=== PATIENT | female | born 1995 | race Caucasian/White ===

== ENCOUNTER 2023-07-21 04:42 | Emergency (ER) | payer BC ==
--- OUTSIDE RECORDS SUMMARY | 2023-07-21 04:45 | XMS REPORT | Continuity of Care Document ---
Author Name Unknown Address [address] [facility] [address] [place] [address] [facility] thconnect Address [address] [facility] [address] [place] [address] Care Team Providers Care Exercise Manager Name Role Phone Rajinder MALONEY Primary Care Physician JEN Castaneda APN Attending Clinician Unavail able SALBADOR CUELLO Attending Clinician UnavailMAI Hairston APN Attending Clinician UnavailANGEL Sims Attending Clinician Unavailpineda e SALBADOR CUELLO Admitting Clinician ANGEL Mast Admitting Clinician Evelio mendoza Payers Payer Name Policy Type Policy Number Effective Date Expirati on Date Source 7 B [id number] Problems Condition Name Condition Details Condition Category Status Onset Date Resolution Date Last Treatment Date Treating Clinician Comments Source Labor finding Problem [facility] Allergies, Adverse Reactions, Alerts Allergy Name Allergy Type Status Severity Reaction(s) Onset Date Inactive Date Treating Clinician Comments Source No Known Allergie s NA Active 06-17 16:50: 03 [facility] ([facility]) No Known Allergie s NA Active 06-17 15:45: 08 [facility] No Known Allergie s NA Active 06-17 00:26: 30 [facility] No Known Allergie s NA Active 06-03 11:11: 32 [facility] ([facility]) No Known Allergie s NA Active 06-03 11:11: 23 [facility] ([facility]) No Known Allergie s NA Active 06-03 11:02: 58 [facility] ([facility]) No Known Allergie s NA Active 06-03 11:02: 56 [facility] ([facility]) Social History Social Habit Start Date Stop Date Quantity Comments Source ASSERTION Nils kowalski ([place]) Future intention Reported Nils kearney ([place]) Sex Assigned At 1995 00:00:00 1995 00:00:00 Female [employer] Smoking Status Start Date Stop Date Source Unknown if ever smoked [employer] Never Smoked [facility] ([place]) Medications Ordered Medication Name Filled Medication Name Start Date Stop Date Current Medication? Ordering Clinician Indication Dosage Frequency Signature (SIG) Comments Components Source vitamin 27-0.8 MG TABS vitamin 27-0.8 MG TABS 06-19 09:00: 00 06-20 12:40 :00 No 1TAB medication : vitamin 27-0.8 MG TABS|dose: 1.0 TAB|route: BY MOUTH|freq uency:NIKKY Y [facility] ([facility]) famotidine famotidine 06-19 06:09: 08 Yes 0mg medication :famotidin e|dose:0.0 mg|route:| frequency: [facility] ([facility]) vitamin 27-0.8 MG vitamin 27-0.8 MG 06-19 06:09: 08 Yes 1TAB medication : vitamin 27-0.8 MG|dose:1. 0 TAB|route: BY MOUTH|freq uency:NIKKY Y [facility] ([facility]) acetaminoph en acetaminoph en 06-19 06:09: 08 Yes 650mg medication :acetamino phen|dose: 650.0 mg|route:B Y MOUTH|freq uency:EVER Y 4 HOURS NEEDED [facility] ([facility]) ibuprofen ibuprofen 06-19 06:09: 08 Yes 800mg medication :ibuprofen |dose:800. 0 mg|route:B Y MOUTH|freq uency:EVER Y 8 HOURS NEEDED [facility] ([facility]) vitamin C 500 MG TABS vitamin C 500 MG TABS 06-18 21:00: 00 06-19 06:09 :08 No 500mg medication :vitamin C 500 MG TABS|dose: 500.0 mg|route:B Y MOUTH|freq uency:TWIC E DAILY [facility] ([facility]) docusate sodium 100 MG CAPS docusate sodium 100 MG CAPS 06-18 21:00: 00 06-19 06:09 :08 No 100mg medication :docusate sodium 100 MG CAPS|dose: 100.0 mg|route:B Y MOUTH|freq uency:EVER Y 12 HOURS [facility] ([facility]) LR + oxytocin 20 units 1000 ML SOLN LR + oxytocin 20 units 1000 ML SOLN 06-18 18:14: 00 06-18 18:14 :00 No 1000mL medication :LR + oxytocin 20 units 1000 ML SOLN|dose: 1000.0 mL|route:I NTRAVENOUS |frequency :ONE TIME [facility] ([facility]) ibuprofen 800 MG TABS ibuprofen 800 MG TABS 06-18 13:19: 06-20 12:40 :00 No 800mg medication :ibuprofen 800 MG TABS|dose: 800.0 mg|route:B Y MOUTH|freq uency:EVER Y 8 HOURS NEEDED [facility] ([facility]) acetaminoph en 325 MG TABS acetaminoph en 325 MG TABS 06-18 13:19: 00 06-20 12:40 :00 No 650mg medication :acetamino phen 325 MG TABS|dose: 650.0 mg|route:B Y MOUTH|freq uency:EVER Y 4 HOURS NEEDED [facility] ([facility]) NS + oxytocin 20 units 1000 ML SOLN NS + oxytocin 20 units 1000 ML SOLN 06-18 13:19: 06-19 22:00 :26 No 1000mL medication :NS + oxytocin 20 units 1000 ML SOLN|dose: 1000.0 mL|route:I NTRAVENOUS |frequency :CONT [facility] ([facility]) ondansetron INJ 4 MG/2 ML SOLN ondansetron INJ 4 MG/2 ML SOLN 06-18 13:19: 00 06-19 06:09 :08 No 4mg medication :ondansetr on INJ 4 MG/2 ML SOLN|dose: 4.0 mg|route:I NTRAVENOUS |frequency :EVERY 6 HOURS NEEDED [facility] ([facility]) diphenhydrA MINE (Benadryl) 25 MG CAPS diphenhydrA MINE (Benadryl) 25 MG CAPS 06-18 13:19: 06-19 06:09 :08 No 25mg medication :diphenhyd rAMINE (Benadryl) 25 MG CAPS|dose: 25.0 mg|route:B Y MOUTH|freq uency:EVER Y 6 HOURS NEEDED [facility] ([facility]) lanolin CREA lanolin CREA 06-18 13:19: 06-19 06:09 :08 No 1APP medication :lanolin CREA|dose: 1.0 ROWDY|route: TOPICAL|fr equency: NEEDED [facility] ([facility]) bisacodyl ORAL TAB 5 MG TBEC bisacodyl ORAL TAB 5 MG TBEC 06-18 13:19: 06-19 06:09 :08 No 10mg medication :bisacodyl ORAL TAB 5 MG TBEC|dose: 10.0 mg|route:B Y MOUTH|freq uency:EVER Y 12 HOURS NEEDED [facility] ([facility]) magnesium hydroxide (MOM) 400 MG/5 ML SUSP magnesium hydroxide (MOM) 400 MG/5 ML SUSP 06-18 13:19: 06-19 06:09 :08 No 30mL medication :magnesium hydroxide (MOM) 400 MG/5 ML SUSP|dose: 30.0 mL|route:B Y MOUTH|freq uency:EVER Y 12 HOURS [facility]ED [facility] sennosides 8.6 MG TABS sennosides 8.6 MG TABS 06-18 13:19: 06-19 06:09 :08 No 2TAB medication :sennoside s 8.6 MG TABS|dose: 2.0 TAB|route: BY MOUTH|freq uency:EVER Y 12 HOURS [facility]ED [facility] hydrocortis one RECTAL 25 MG SUPP hydrocortis one RECTAL 25 MG SUPP 06-18 13:19: 06-19 06:09 :08 No 25mg medication :hydrocort isone RECTAL 25 MG SUPP|dose: 25.0 mg|route:R ECTAL|freq uency:TWIC E DAILY NEEDED [facility] ([facility]) witch toñito (tucks) PADS witch toñito (tucks) PADS 06-18 13:19: 06-19 06:09 :08 No 1EA medication :witch toñito (tucks) PADS|dose: 1.0 EA|route:R ECTAL|freq uency:FOUR TIMES DAILY NEEDED [facility] ([facility]) benzocaine RECTAL 20 % OINT benzocaine RECTAL 20 % OINT 06-18 13:19: 06-19 06:09 :08 No 1APP medication :benzocain e RECTAL 20 % OINT|dose: 1.0 ROWDY|route: RECTAL|suzette quency:TWI CE DAILY NEEDED [facility] ([facility]) benzocaine- methanol spray 20-0.5 % AERO benzocaine- methanol spray 20-0.5 % AERO 06-18 13:19: 06-19 06:09 :08 No 1APP medication :benzocain e-methanol spray 20-0.5 % AERO|dose: 1.0 ROWDY|route: TOPICAL|fr equency:FO UR TIMES DAILY [facility]ED [facility] ondansetron ODT 4 MG TBDP ondansetron ODT 4 MG TBDP 06-18 13:19: 00 06-19 06:09 :08 No 4mg medication :ondansetr on ODT 4 MG TBDP|dose: 4.0 mg|route:B Y MOUTH|freq uency:EVER Y 6 HOURS NEEDED [facility] ([facility] mineral oil OIL mineral oil OIL 06-18 11:11: 00 06-18 11:11 :00 No 30mL medication :mineral oil OIL|dose:3 0.0 mL|route:B Y MOUTH|freq uency:ONE TIME [facility] ([facility]) LR + oxytocin 20 units 1000 ML SOLN LR + oxytocin 20 units 1000 ML SOLN 06-18 05:44: 00 06-18 05:44 :00 No 1000mL medication :LR + oxytocin 20 units 1000 ML SOLN|dose: 1000.0 mL|route:I NTRAVENOUS |frequency :ONE TIME [facility] ([facility]) NS + oxytocin 20 units 1000 ML SOLN NS + oxytocin 20 units 1000 ML SOLN 06-18 05:00: 00 06-18 05:00 :00 No 1000mL medication :NS + oxytocin 20 units 1000 ML SOLN|dose: 1000.0 mL|route:I NTRAVENOUS |frequency :TITRATE PRN [facility] ([facility]) NS + oxytocin 20 units 1000 ML SOLN NS + oxytocin 20 units 1000 ML SOLN 06-18 04:00: 00 06-19 22:00 :26 No 1000mL medication :NS + oxytocin 20 units 1000 ML SOLN|dose: 1000.0 mL|route:I NTRAVENOUS |frequency :TITRATE PRN [facility] ([facility]) fentaNYL INJ 100 MCG/2 ML SOLN fentaNYL INJ 100 MCG/2 ML SOLN 06-17 15:56: 00 06-19 06:09 :08 No 100ug medication :fentaNYL INJ 100 MCG/2 ML SOLN|dose: 100.0 ug|route:I NTRAVENOUS |frequency :EVERY HOUR NEEDED [facility] ([facility]) mineral oil (sterile) 10 ML OIL mineral oil (sterile) 10 ML OIL 06-17 15:32: 00 06-18 22:00 :24 No 10mL medication :mineral oil (sterile) 10 ML OIL|dose:1 0.0 mL|route:N OT APPLICABLE |frequency :ONE TIME [facility] ([facility]) NS SOLN NS SOLN 06-17 15:30: 00 06-20 12:40 :00 No 50mL medication :NS SOLN|dose: 50.0 mL|route:P ERCUTANEOU S|frequenc y:ONE-TIME UNSCHEDULE D ORDER [facility] ([facility]) fentanyl/bu pivacaine-N S 200MCG-0.12 5% 100 ML SOLN fentanyl/bu pivacaine-N S 200MCG-0.12 5% 100 ML SOLN 06-17 15:30: 00 06-19 06:09 :08 No 100mL medication :fentanyl/ bupivacain e-NS 200MCG-0.1 25% 100 ML SOLN|dose: 100.0 mL|route:E PIDURAL|fr equency:ON E-TIME UNSCHEDULE D ORDER [facility] ([facility]) fentaNYL INJ 100 MCG/2 ML SOLN fentaNYL INJ 100 MCG/2 ML SOLN 06-17 15:30: 00 06-19 06:09 :08 No 100ug medication :fentaNYL INJ 100 MCG/2 ML SOLN|dose: 100.0 ug|route:E PIDURAL|fr equency:ON E-TIME UNSCHEDULE D ORDER [facility] ([facility]) ondansetron INJ 4 MG/2 ML SOLN ondansetron INJ 4 MG/2 ML SOLN 06-17 15:30: 00 06-19 06:09 :08 No 4mg medication :ondansetr on INJ 4 MG/2 ML SOLN|dose: 4.0 mg|route:I NTRAVENOUS |frequency :EVERY 8 HOURS NEEDED [facility] ([facility]) promethazin e INJ 25 MG/ML SOLN promethazin e INJ 25 MG/ML SOLN 06-17 15:30: 00 06-19 06:09 :08 No 12.5mg medication :promethaz ine INJ 25 MG/ML SOLN|dose: 12.5 mg|route:I NTRAMUSCUL AR|frequen cy:EVERY 4 HOURS NEEDED [facility] ([facility]) citric acid-sod citrate ORAL 334-500 MG/5ML SOLN citric acid-sod citrate ORAL 334-500 MG/5ML SOLN 06-17 15:30: 00 06-19 06:09 :08 No 30mL medication :citric acid-sod citrate ORAL 334-500 MG/5ML SOLN|dose: 30.0 mL|route:B Y MOUTH|freq uency:FOUR TIMES DAILY NEEDED [facility] ([facility]) enema-sodiu m phosphate (fleet) ENEM enema-sodiu m phosphate (fleet) ENEM 06-17 15:30: 00 06-19 06:09 :08 No 1EA medication :enema-sod ium phosphate (fleet) ENEM|dose: 1.0 EA|route:R ECTAL|freq uency:ONE- TIME UNSCHEDULE D ORDER [facility] ([facility]) lidocaine INJ MULTI DOSE VIAL 2 % 20ML SOLN lidocaine INJ MULTI DOSE VIAL 2 % 20ML SOLN 06-17 15:30: 00 06-19 06:09 :08 No 20mL medication :lidocaine INJ MULTI DOSE VIAL 2 % 20ML SOLN|dose: 20.0 mL|route:P ERCUTANEOU S|frequenc y:ONE-TIME UNSCHEDULE D ORDER [facility] ([facility]) LR SOLN LR SOLN 06-17 15:30: 00 06-19 06:09 :08 No 1000mL medication :LR SOLN|dose: 1000.0 mL|route:I NTRAVENOUS |frequency :CONT [facility] LR SOLN LR SOLN 06-17 15:30: 00 06-19 06:09 :08 No 500mL medication :LR SOLN|dose: 500.0 mL|route:I NTRAVENOUS |frequency :ONE-TIME UNSCHEDULE D ORDER [facility] ([facility]) citric acid-sod citrate ORAL 334-500 MG/5ML SOLN citric acid-sod citrate ORAL 334-500 MG/5ML SOLN 06-17 15:30: 00 06-19 06:09 :08 No 15mL medication :citric acid-sod citrate ORAL 334-500 MG/5ML SOLN|dose: 15.0 mL|route:B Y MOUTH|freq uency:ONE- TIME UNSCHEDULE D ORDER [facility] ([facility]) famotidine INJ 20 MG/2 ML SOLN famotidine INJ 20 MG/2 ML SOLN 06-17 15:30: 00 06-19 06:09 :08 No 20mg medication :famotidin e INJ 20 MG/2 ML SOLN|dose: 20.0 mg|route:I NTRAVENOUS |frequency :ONE-TIME UNSCHEDULE D ORDER [facility] ([facility]) NS + oxytocin 20 units 1000 ML SOLN NS + oxytocin 20 units 1000 ML SOLN 06-17 15:30: 00 06-18 22:00 :24 No 1000mL medication :NS + oxytocin 20 units 1000 ML SOLN|dose: 1000.0 mL|route:I NTRAVENOUS |frequency :CONT [facility] ([facility]) Vital Signs Vital Name Observation Time Observation Value Comments S ource Body temperature 2023-06-21 07:53:00 97.9 [degF] [facility]) Diastolic blood pressure 2023-06-21 07:53:00 74 mm[Hg] [facility] [place]) Heart rate 2023-06-21 07:53:00 63 /min [facility]) Oxygen saturation in Arterial blood by Pulse oximetry 2023-06-21 07:53:00 98 /min [facility] [place]) Respiratory rate 2023-06-21 07:53:00 16 /min [facility]) Systolic blood pressure 2023-06-21 07:53:00 129 mm[Hg] [facility] ([place]) Body temperature 2023-06-21 07:30:00 97.9 [degF] [facility]) Diastolic blood pressure 2023-06-21 07:30:00 74 mm[Hg] [facility] ([place]) Heart rate 2023-06-21 07:30:00 63 /min [facility]) Oxygen saturation in Arterial blood by Pulse oximetry 2023-06-21 07:30:00 98 /min [facility] ([place]) Respiratory rate 2023-06-21 07:30:00 16 /min [facility]) Systolic blood pressure 2023-06-21 07:30:00 129 mm[Hg] [facility] ([place]) Body height 2023-06-18 15:25:41 157.48 cm [facility]) Body mass index (BMI) [Ratio] 2023-06-18 15:25:41 39.503 kg/m2 [facility] [place]) Body weight Measured 2023-06-18 15:25:41 97.976 kg [facility]) Body temperature 2023-06-18 00:23:00 98.1 [degF] [facility]) Heart rate 2023-06-18 00:23:00 89 /min [facility]) Oxygen saturation in Arterial blood by Pulse oximetry 2023-06-18 00:23:00 99 /min [facility] ([place]) Respiratory rate 2023-06-18 00:23:00 18 /min [facility]) Body height 2023-06-04 11:11:23 157.48 cm [facility]) Body mass index (BMI) [Ratio] 2023-06-04 11:11:23 38.954 kg/m2 [facility] [place]) Body weight Measured 2023-06-04 11:11:23 96.615 kg [facility] ([place]) Procedures Procedure Date / Time Performed Performing Clinicia n Source X-ray of ankle, three or more views 2019-01-02 00:00:00 [facility] Minor level new patient office visit 2019-01-02 00:00:00 [facility] X-ray of foot, three or more views 2019-01-02 00:00:00 [facility] Encounters Start Date/Time End Date/Time Encounter Type Admission Type Attending Clinicians Care Facility Care Department Encounter ID Source 2023-07-13 08:46:00 2023-07-13 08:46:00 Outpatient [facility] [id number] [facility] 2023-06-18 15:18:00 2023-06-21 12:40:00 Hospital Admission 3 [facility] OB [id number] [facility] 2023-06-18 00:23:00 2023-06-18 02:55:00 Outpatient Encounter 1 [facility] LDE [id number] [facility] 2023-06-15 10:02:00 2023-06-15 10:02:00 Outpatient Encounter 3 [facility] PAS [id number] [facility]) 2023-06-04 10:55:00 2023-06-04 13:33:00 Outpatient Encounter 3 [facility] [id number] [facility]) 2022-02-03 09:12:00 2022-02-03 09:12:00 Outpatient MAI DOYLE [id number] [facility] 2021-02-22 06:21:00 2021-02-25 14:07:00 Inpatient ANGEL ANDERSON OB [id number] [facility] 2021-01-25 18:59:00 2021-01-25 18:59:00 Outpatient ANGEL ANDERSON [id number] [facility] 2019-01-02 13:16:00 2019-01-16 23:59:00 Discharged Rubina Esteban [id number] [facility] Results Test Description Test Time Test Comments Results Result Co mments Source Hepatitis C virus Ab [Presence] in [id number] [facility][id number] 04:08:00* Test Item Value Reference Range Interpretation Comme nts WBC (test code = WBC) 12.1 K/UL 3.5-10.9 H RBC (test code = RBC) 3.67 M/UL 4.0-5.0 L HGB (test code = HGB) 10.6 G/DL 11.5-15.5 L HCT (test code = HCT) 32.1 % 34-46 L MCV (test code = MCV) 87.5 FL 80-98 MCH (test code = MCH) 28.9 PG 28-32 MCHC (test code = MCHC) 33.0 G/DL 32.5-36.5 RDW (test code = RDW) 13.1 % 11.5-14.5 PLT (test code = PLT) 230 K/UL 150-450 MPV (test code = MPV) 10.9 FL 7.4-10.4 H MANDIFF (test code = MANDIFF) NO SCAN (test code = SCAN) NO NEUT% (test code = NEUT%) 69.9 % 40-75 LYMPH% (test code = LYMPH%) 19.7 % 24-44 L MONO% (test code = MONO%) 7.0 % 0-13 EOS% (test code = EOS%) 1.1 % 0-4 BASO % (test code = BASO%) 0.5 % 0.0-2.0 IG (test code = IG) 0 % 0-1 IG% (test code = IG%) 1.8 % 0-1 H IG% = Metamyeloc ytes, Myelocytes, and Promyelocytes. (Immature neutrophils not including "bands".) > 3% IG indicates risk of sepsis NRBC% (test code = NRBC%) 0 /100 WBC ABS NEUT (test code = NEUT) 8.4 K/UL 1.2-7.2 H CBC W Auto Differential panel - [id number] 04:08:00* Test Item Value Reference Range Interpretation Comme nts Leukocytes other [Identifier ] in Blood by Automated count (test code = 29541-5) 12.1 K/UL 3.5-10.9 H Erythrocytes [#/volume] in B lood (test code = 90558-0) 3.67 M/UL 4.0-5.0 L Hemoglobin A/Hemoglobin.tota l in Blood (test code = 4546-8) 10.6 G/DL 11.5-15.5 L Hematocrit [Volume Fraction] of Blood (test code = 68701-5) 32.1 % 34.0-46.0 L Erythrocyte mean corpuscular volume [Entitic volume] (test code = 89716-1) 87.5 FL 80.0-98.0 N Erythrocyte mean corpuscular hemoglobin [Entitic mass] (test code = 51737-9) 28.9 PG 28.0-32.0 N Erythrocyte mean corpuscular hemoglobin concentration [Mass/volume] (test code = 75688-7) 33.0 G/DL 32.5-36.5 N Erythrocyte distribution wid th [Ratio] (test code = 69239-3) 13.1 % 11.5-14.5 N Platelets panel - Blood by Automated count (test code = 19845-0) 230 K/UL 150.0-450.0 N Platelet mean volume [Entiti c volume] in Blood by Automated count (test code = 81961-8) 10.9 FL 7.4-10.4 H Neutrophils.segmented/100 leukocytes in Blood (test code = 72518-6) 69.9 % 40.0-75.0 N Lymphocytes Variant/100 leuk ocytes in Blood (test code = 86061-8) 19.7 % 24.0-44.0 L Lymphocytes+Monocytes/100 leukocytes in Blood (test code = 4662-3) 7.0 % 0.0-13.0 N Eosinophils [#/volume] in Bl ood (test code = 87475-2) 1.1 % 0.0-4.0 N Basophils [#/volume] in Bloo d (test code = 74474-4) 0.5 % 0.0-2.0 N Immature granulocytes/100 leukocytes in Blood (test code = 25243-4) 1.8 % 0.0-1.0 H Nucleated erythrocytes [#/vo lume] in Blood (test code = 23985-2) 0 /100 WBC N Neutrophils [#/volume] in Bl ood (test code = 79887-1) 8.4 K/UL 1.2-7.2 H [facility] ([place])BLOOD GAS W/O [id number] 13:47:00* Test Item Value Reference Range Interpretation Comme [facility] SITE (test code = SITE) VENOUS See_Comment [Automated [employer]] The system which generated this result transmitted reference range: -SITE. The reference range was not used to interpret this result as normal/abnormal. ALLENS (test code = ALLENS) CORD O2 EQUIP (test code = O2 EQUIP) GAS O2-DEVICE PH (test code = BGPH) 7.39 7.35-7.45 PCO2 (test code = PCO2) 43 MMHG 34.0-45.0 PO2 (test code = PO2) 35 MMHG 96-104 LL HCO3 (test code = HCO3) 26.0 mmol/L 22.0-26.0 BE (test code = BE) 0.8 mmol/L -2.0-2.0 Gas and Carbon monoxide panel - [id number] 13:47:00* Test Item Value Reference Range Interpretation Comme [facility] SAMPLE SITE: (test code = SITE) VENOUS N ALLENS TEST: (test code = ALLENS) CORD N O2 EQUIPMENT: (test code = O2 EQUIP) GAS O2 N pH of Arterial blood (test code = 2744-1) 7.39 1 7.35-7.45 N PCO2 (test code = PCO2) 43 MMHG 34.0-45.0 N PO2 (test code = PO2) 35 MMHG 96.0-104.0 LL HCO3 (test code = HCO3) 26.0 mmol/L 22.0-26.0 N BE (test code = BE) 0.8 mmol/L See_Comment N [Aut omated message] The system which generated this result transmitted reference range: -2.0. The reference range was not used to interpret this result as normal/abnormal. [facility])BLOOD GAS W/O [id number] 13:46:00* Test Item Value Reference Range Interpretation Comme [facility] SITE (test code = SITE) ARTERIAL See_Comment [Automated messa ge] The system which generated this result transmitted reference range: -SITE. The reference range was not used to interpret this result as normal/abnormal. ALLENS (test code = ALLENS) CORD O2 EQUIP (test code = O2 EQUIP) GAS O2-DEVICE PH (test code = BGPH) 7.28 7.35-7.45 L PCO2 (test code = PCO2) 56 MMHG 34.0-45.0 H PO2 (test code = PO2) 31 MMHG 96-104 LL HCO3 (test code = HCO3) 26.3 mmol/L 22.0-26.0 H BE (test code = BE) -1.4 mmol/L -2.0-2.0 Gas and Carbon monoxide panel - [id number] 13:46:00* Test Item Value Reference Range Interpretation Comme [facility] SAMPLE SITE: (test code = SITE) ARTERIAL N ALLENS TEST: (test code = ALLENS) CORD N O2 EQUIPMENT: (test code = O2 EQUIP) GAS O2 N pH of Arterial blood (test code = 2744-1) 7.28 1 7.35-7.45 L PCO2 (test code = PCO2) 56 MMHG 34.0-45.0 H PO2 (test code = PO2) 31 MMHG 96.0-104.0 LL HCO3 (test code = HCO3) 26.3 mmol/L 22.0-26.0 H BE (test code = BE) -1.4 mmol/L See_Comment N [Au tomated message] The system which generated this result transmitted reference range: -2.0. The reference range was not used to interpret this result as normal/abnormal. [facility])[id number] 15:54:00* Test Item Value Reference Range Interpretation Comme [facility] BLOOD TYPE (test code = TYPE) O Rh Positive Comment for Females Rhogam may be indicated for patient depending baby's Rh status. ANTIBODY SCREEN (test code = SCREEN) NEGATIVE NEGATIVE Blood type and Indirect antibody screen panel -2023-06-18 15:54:00* Test Item Value Reference Range Interpretation Comme nts ABO + Rh group [Type] in Blo od (test code = 882-1) O Rh Positive N [facility] ([place])[id number] 02:10:00* Test Item Value Reference Range Interpretation Comme nts GLUCOSE (test code = URGLU) NEGATIVE MG/DL NEG-100 BILIRUBN (test code = URBILI) NEGATIVE NEGATIVE KETONE (test code = URKET) TRACE MG/DL NEGATIVE BLOOD (test code = URBLD) LARGE NEGATIVE UR PH (test code = URPH) 6.5 5.0-7.5 PROTEIN (test code = URPRO) TRACE MG/DL NEGATIVE NITRITES (test code = URNIT) NEGATIVE NEGATIVE UROBILINGEN (test code = URURO) 0.2 EU/DL 0.2-1.0 LEUKOCYT (test code = URLEU) TRACE NEGATIVE UA COLOR (test code = UA COLOR) YELLOW YELLOW CLARITY (test code = CLARITY) CLEAR CLEAR SP GRAV (test code = URSPGRAV) >=1.030 1.000-1.025 H UAMICRO (test code = UAMICRO) YES WBC (test code = URWBC) 24 /HPF 0-5 H RBC (test code = URRBC) 266 /HPF 0-2 H CASTS (test code = CAST) 5 /LPF 0-3 H UR EPI (test code = EPI) 161 /LPF BACTERIA (test code = BACTERIA) MANY NONE Urinalysis panel - Urine by Tlis8935-94-97 02:10:00* Test Item Value Reference Range Interpretation Comme nts Ketones [Presence] in Urine (test code = 96372-7) TRACE NEG N pH of Urine (test code = 2756-5) 6.5 1 5.0-7.5 N Protein [Presence] in Urine (test code = 2887-8) TRACE NEGATIVE N Urobilinogen [Presence] in U rine (test code = 74027-1) 0.2 EU/DL 0.2-1.0 N Specific gravity of Urine (t est code = 2965-2) >=1.030 1.0-1.025 H Leukocytes [Presence] in Uri ne sediment by Light microscopy (test code = 07919-1) 24 /HPF 0.0-5.0 H Erythrocytes [Presence] in U rine sediment by Light microscopy (test code = 38606-7) 266 /HPF 0.0-2.0 H Casts [Presence] in Urine by Automated (test code = 56450-8) 5 /LPF 0.0-3.0 H Epithelial cells [Presence] in Urine sediment by Light microscopy (test code = 33792-8) 161 /LPF N Bacteria [#/volume] in Urine by Automated count (test code = 30831-9) MANY NONE [facility] ([place])RPR FOR SERUM [id number] 00:57:00* Test Item Value Reference Range Interpretation Comme nts RPR (test code = RPR) NONREACTIVE NONREACTIVE N R = NON-REACTIVE R = REACTIVE CONTROL (test code = TITERCTL) PASS Reagin Ab [Presence] in Serum by [id number] 00:57:00* Test Item Value Reference Range Interpretation Comme nts Internal control result (alycia t code = 82408-8) PASS [facility] ([place])YNZCMYJECY9999-40-31 12:52:00* Test Item Value Reference Range Interpretation Comme nts GLUCOSE (test code = URGLU) NEGATIVE MG/DL NEG-100 BILIRUBN (test code = URBILI) NEGATIVE NEGATIVE KETONE (test code = URKET) NEGATIVE MG/DL NEGATIVE BLOOD (test code = URBLD) NEGATIVE NEGATIVE UR PH (test code = URPH) 7.5 5.0-7.5 PROTEIN (test code = URPRO) NEGATIVE MG/DL NEGATIVE NITRITES (test code = URNIT) NEGATIVE NEGATIVE UROBILINGEN (test code = URURO) 0.2 EU/DL 0.2-1.0 LEUKOCYT (test code = URLEU) NEGATIVE NEGATIVE UA COLOR (test code = UA COLOR) YELLOW YELLOW CLARITY (test code = CLARITY) CLEAR CLEAR SP GRAV (test code = URSPGRAV) 1.020 1.000-1.025 UAMICRO (test code = UAMICRO) NO Urinalysis panel - Urine by Eyiw2789-67-15 12:52:00* Test Item Value Reference Range Interpretation Comme nts pH of Urine (test code = 2756-5) 7.5 1 5.0-7.5 N Urobilinogen [Presence] in U rine (test code = 85912-3) 0.2 EU/DL 0.2-1.0 N Specific gravity of Urine (t est code = 2965-2) 1.02 1 1.0-1.025 N [facility] [id number] 12:34:00* Test Item Value Reference Range Interpretation Comme nts AMPHET (test code = BAMP) NEGATIVE NEGATIVE This is an uncon firmed screening. Result are to be used for medical purposes (treatment) only. Not intended for non-medical purposes. Cut-off concentration for a positive result for each drug: Amphetamine - 1,000 ng/ml Barbiturate - 200 ng/ml Benzodiazepine - 200 ng/ml Cannabinoids - 50 ng/ml Cocaine - 300 ng/ml Opiates - 300 ng/ml PCP - 25 ng/ml BARBITURATES (test code = BBAR) NEGATIVE NEGATIVE BENZO (test code = BBENZ) NEGATIVE NEGATIVE CANNABS (test code = BCANN) NEGATIVE NEGATIVE COCAINE (test code = BCOC) NEGATIVE NEGATIVE OPIATES (test code = BOPI) NEGATIVE NEGATIVE PCP (test code = BMTPCP) NEGATIVE NEGATIVE Drugs of abuse 5 panel - Urine by Screen oazclx4006-54-28 12:29:00 NegativeNegativeNegativeNegativeNegativeNegativeNegativeErlanger Bledsoe HospitalHEPATITIS B SURF WS7746-80-44 12:21:00* Test Item Value Reference Range Interpretation Comme [facility] HEPBSAG (test code = HEPBSAG) NEGATIVE NEGATIVE Hepatitis B Surf anay Antigen is for screening purpose only. Hepatitis B virus surface Ag [Presence] in Sbwi5679-76-50 12:21:00Negative [facility])HIV 1/2 BGFUDPTT3103-08-00 11:39:00* Test Item Value Reference Range Interpretation Comme [facility] HIV 1/2 ANTIBODY (test code = AHIV) NEGATIVE NEGATIVE This test is used for SCREENING purposes only. All reactive results are prelimenary and confirmation results will follow. HIV 1+2 Ab [Units/volume] in Amnye1479-29-45 11:38:[facility]ADN5812-44-76 10:55:00* Test Item Value Reference Range Interpretation Comme nts WBC (test code = WBC) 11.6 K/UL 3.5-10.9 H RBC (test code = RBC) 4.32 M/UL 4.0-5.0 HGB (test code = HGB) 12.3 G/DL 11.5-15.5 HCT (test code = HCT) 37.7 % 34-46 MCV (test code = MCV) 87.3 FL 80-98 MCH (test code = MCH) 28.5 PG 28-32 MCHC (test code = MCHC) 32.6 G/DL 32.5-36.5 RDW (test code = RDW) 12.9 % 11.5-14.5 PLT (test code = PLT) 250 K/UL 150-450 MPV (test code = MPV) 10.4 FL 7.4-10.4 MANDIFF (test code = MANDIFF) NO SCAN (test code = SCAN) NO NEUT% (test code = NEUT%) 74.1 % 40-75 LYMPH% (test code = LYMPH%) 17.8 % 24-44 L MONO% (test code = MONO%) 4.3 % 0-13 EOS% (test code = EOS%) 0.8 % 0-4 BASO % (test code = BASO%) 0.7 % 0.0-2.0 IG (test code = IG) 0 % 0-1 IG% (test code = IG%) 2.3 % 0-1 H IG% = Metamyeloc ytes, Myelocytes, and Promyelocytes. (Immature neutrophils not including "bands".) > 3% IG indicates risk of sepsis NRBC% (test code = NRBC%) 0 /100 WBC ABS NEUT (test code = NEUT) 8.6 K/UL 1.2-7.2 H CBC W Auto Differential panel - Kjqqh8858-69-23 10:55:00* Test Item Value Reference Range Interpretation Comme nts Leukocytes other [Identifier ] in Blood by Automated count (test code = 01567-4) 11.6 K/UL 3.5-10.9 H Erythrocytes [#/volume] in B lood (test code = 52785-4) 4.32 M/UL 4.0-5.0 N Hemoglobin A/Hemoglobin.tota l in Blood (test code = 4546-8) 12.3 G/DL 11.5-15.5 N Hematocrit [Volume Fraction] of Blood (test code = 63145-6) 37.7 % 34.0-46.0 N Erythrocyte mean corpuscular volume [Entitic volume] (test code = 78550-7) 87.3 FL 80.0-98.0 N Erythrocyte mean corpuscular hemoglobin [Entitic mass] (test code = 18088-6) 28.5 PG 28.0-32.0 N Erythrocyte mean corpuscular hemoglobin concentration [Mass/volume] (test code = 27065-1) 32.6 G/DL 32.5-36.5 N Erythrocyte distribution wid th [Ratio] (test code = 36559-5) 12.9 % 11.5-14.5 N Platelets panel - Blood by Automated count (test code = 96394-1) 250 K/UL 150.0-450.0 N Platelet mean volume [Entiti c volume] in Blood by Automated count (test code = 69223-5) 10.4 FL 7.4-10.4 N Neutrophils.segmented/100 leukocytes in Blood (test code = 27806-3) 74.1 % 40.0-75.0 N Lymphocytes Variant/100 leuk ocytes in Blood (test code = 71924-2) 17.8 % 24.0-44.0 L Lymphocytes+Monocytes/100 leukocytes in Blood (test code = 4662-3) 4.3 % 0.0-13.0 N Eosinophils [#/volume] in Bl ood (test code = 66579-0) 0.8 % 0.0-4.0 N Basophils [#/volume] in Bloo d (test code = 99294-6) 0.7 % 0.0-2.0 N Immature granulocytes/100 leukocytes in Blood (test code = 56456-1) 2.3 % 0.0-1.0 H Nucleated erythrocytes [#/vo lume] in Blood (test code = 43317-4) 0 /100 WBC N Neutrophils [#/volume] in Bl ood (test code = 11160-4) 8.6 K/UL 1.2-7.2 H [facility]TYBZ8166-72-29 10:05:00* Test Item Value Reference Range Interpretation Comme nts BLOOD TYPE (test code = TYPE) O Rh Positive Comment for Females Rhogam may be indicated for patient depending baby's Rh status. ANTIBODY SCREEN (test code = SCREEN) NEGATIVE NEGATIVE Blood type and Indirect antibody screen panel -2023-06-15 10:05:00* Test Item Value Reference Range Interpretation Comme nts ABO + Rh group [Type] in Blo od (test code = 882-1) O Rh Positive N [facility] BIOPHYSICAL MBPIHXT8378-93-04 11:49:00 [facility] COR[facility] : 1995 Sex: F[address] [address]CZYYQPUSRD IMAGING REPORTPatient Name: Chace ROJO of Service: [id number]: 28 Sex: F Order #: [id number] Room: [facility] 3RDOB: 1995 X-Ray Number: [id number] Record Number: [id number] Hospital Number: [id number] Physician: Meka CUELLO Physician: JIM CUELLO BIOPHYSICAL PROFILE06/04/2023 11:41 AMHistory: well-being.Comparison: No prior imaging available.Technique: Transabdominal grayscale and color Doppler imaging of the fetuswas performed with particular attentionpaid to the elements of fetalbiophysical profile over 30 minutes.Findings:There is a single live int rauterine gestation in the cephalicpresentation. The placenta is anterior. The PANCHITO measures 8.6 cm (N 5-25cm). There is cardiac motion present at 125 bpm.BPP:Tone 2Movement 2Breathing 2Amnioticfluid volume 2Total: 8/8IMPRESSION:Normal BPP of 8/8.Electronically Signed By: Estephania Russell Jr, MD, 06/04/2023 11:47 AMLegally authenticated by PANCHO MONTALVO 2023-06-04 11:47:11 Biophysical profile panel [id number] 11:47:11ORDER 100: US BIOPHYSICAL PROFILE (LOINC: 44670-7)ORDER DATE: June 04, 2023 4:12:00 PM [facility]) Discharge Summaries Date/Time Note Provider Source 2023-06-21 20:51:37 wRU0Ldn9qJi57OiZfR70 414kvexC6JyjE RnyYbiQ4J3lUsGKAKS9+iE+eMMoHyQk04 11-07-03T20:51:37Day of Discharge Update No changes to discharge plan Electronically signed by KHUSHBOO KERVINGALA on [id number] Summary noteLNELBA GENERAL HOSPITALLENNIE [facility] [place]IOYHAHMALBA[place] [address] 916-43-44V42:51:42Discharge Summary noteTXTAVAvailable for patient qqkf68225-4Qcfddyrte Summary noteLNFIXEDFixed width [facility]+1(510) [phone] T20:51:37 [facility] 2023-06-19 13:22:40 mg1VGnv+qnUxysTN5/BE TQOS8nf9WAHdF 0+Kwrq9byTbXDVDRLyZRyLB1+7LIKRX67 10-07-01T13:22:40Reason for Admission Induction of labor Procedures: Intrapartum Spontaneous Vaginal Delivery Discharge Diagnosis Term delivered Complications None Lab Results 0134 Urinalysis GLUCOSE Negative BILIRUBN Negative KETONE Trace BLOOD Large UR PH 6.5 PROTEIN Trace NITRITES Negative UROBILIN 0.2 LEUKOCYT Trace UA COLOR Yellow CLARITY Clear SP GRAV >=1.030 (H) UAMICRO Yes WBC 24 (H) RBC 266 (H) CASTS 5 (H) UR EPI 161 BACTERIA Many 1005 Urine Chemistry AMPHET Negative BARBIT Negative BENZO Negative CANNABS Negative COCAINE Negative OPIATES Negative PCP Negative 1005 Serology RPR Nonreactive CONTROL Pass 1005 Urinalysis GLUCOSE Negative BILIRUBN Negative KETONE Negative BLOOD Negative UR PH 7.5 PROTEIN Negative NITRITES Negative UROBILIN 0.2 LEUKOCYT Negative UA COLOR Yellow CLARITY Clear SP GRAV 1.020 UAMICRO No 1005 Hematology WBC 11.6 (H) RBC 4.32 HGB 12.3 HCT 37.7 MCV 87.3 MCH 28.5 MCHC 32.6 RDW 12.9 PLT 250 MPV 10.4 MANDIFF No SCAN No NEUT% 74.1 LYMPH% 17.8 (L) MONO% 4.3 EOS% 0.8 BASO 0.7 IG 0 IG% 2.3 (H) NRBC% 0 ABS NEUT 8.6 (H) 1005 Chemistry AHIV Negative HEPBSAG Negative Discharge Information Discharge Anticipated Discharge Date Activity Unrestricted (See Post- Discharge Instructions) Diet Routine Status Well Medications Motrin 800 Instructions Routine Discharge To Home Plan of Care and Discharge Plan Discussed with Patient/Family Plan of care and discharge plan discussed with the patient and/or family. Questions answered. Follow Up Follow-up 3 weeks Electronically signed by KHUSHBOO SIU on [id number] Summary noteLNKHUSHBOO KERVINHARSHTATIANA GALEANAJAXSONHMALBAYANCLIFTON-FINE HOSPITALZAYRACAITLINTATIANA 368-94-33N63:23:48Discharge Summary noteTXTAVAvailable for patient jtij48029-2Bhwpdzodv Summary noteLNFIXEDFixed width textMASSENA MEMORIAL HOSPITALETVIB[facility]+1(579) [phone] T13:22:40 [facility] History and Physical Notes Date/Time Note Provider Source 2023-06-18 17:45:37 tDtE9MukgSZHlAUdCqoN wqJ7Ci4o0BsCR niLuHFG+0T5f5bIme44tQe00S7KiXl217 10-07-00T17:45:37Maternal History Age (28), Gravid (2), Living (1) Admission Date , Estimated date of delivery Estimated Gestational Age Weeks (comment) (41) Significant Changes Since Last Visit Contractions Reason for Admission Labor, Other (Scheduled induction of labor at 41 weeks. Patient reports contractions and blood-tinged mucous. Good movement. No other complaints.) Review Of Systems All Negative Allergies No Known Allergies Medications vitamins Membranes Intact Physical Exam Cardiovascular Regular rate Abdomen Gravid , Appropriate Peripheral Vascular / Extremities Edema of Lower Extremities +1 Homans' Sign No Neurological Intact Presentation Baby A Cephalic Heart Rate Category 2, Other (variable decel noted) Estimated Weight By Ultrasound (7lb 6oz on 06/11) SVE Dilation 3 Effacement 50% Station -2 Vital Signs and Labs Vital Signs See Labor EMR Lab Results 0134 Urinalysis GLUCOSE Negative BILIRUBN Negative KETONE Trace BLOOD Large UR PH 6.5 PROTEIN Trace NITRITES Negative UROBILIN 0.2 LEUKOCYT Trace UA COLOR Yellow CLARITY Clear SP GRAV >=1.030 (H) UAMICRO Yes WBC 24 (H) RBC 266 (H) CASTS 5 (H) UR EPI 161 BACTERIA Many Assessment Labor, Other (GBS negative) Plan Admit, Pitocin, Epidural Pitocin at 0400 Epidural upon request Electronically signed by KHUSHBOO SIU on [id number] and physical noteLNAL-TATIANA [facility] CENTERMaxROPER ST[facility]ANC[facility]LEASANT HOSPITALLENNIE [facility]ICAL CENTERMaxHALEY V[place] [address] 840-79-59F33:51:23History and physical noteTXTAVAvailable for patient rrip72533-8Dwrmpqv and physical noteLNFIXEDFixed width textBHSSETBAPTIST [facility]+5(401)311-474-32553287-61-01 T17:45:37 [facility] Progress Notes Date/Time Note Provider Source 2023-06-20 07:09:49 CLjiP6bIvSUSrKE6SsEj K6BlO44YzcUeJxU mi1AIBZV+d8NA8jTJZpl3lPih0j369065-6 06-19T07:09:49Subjective Vaginal Bleeding Normal Breast Feeding Yes Pain Controlled Baby Doing Well Objective Vital Signs 0245 T 98.2 HR 80 RR 18 BP 100 / 57 O2Sat 99 MAP 71 2000 T 98.4 HR 72 RR 18 BP 129 / 71 O2Sat 98 MAP 90 1600 T 98.0 HR 84 RR 17 BP 96 / 66 O2Sat 97 0023 T 98.1 HR 89 RR 18 O2Sat 99 PAIN 1 WT KG 97.98 General NAD Lungs Clear to Auscultation Bilaterally CV Regular Rate and Rhythm Abdomen Appropriate Uterus Extremities Non-tender Lab Results 249 Hematology WBC 12.1 (H) RBC 3.67 (L) HGB 10.6 (L) HCT 32.1 (L) MCV 87.5 MCH 28.9 MCHC 33.0 RDW 13.1 PLT 230 MPV 10.9 (H) MANDIFF No SCAN No NEUT% 69.9 LYMPH% 19.7 (L) MONO% 7.0 EOS% 1.1 BASO 0.5 IG 0 IG% 1.8 (H) NRBC% 0 ABS NEUT 8.4 (H) 249 Chemistry SCRN HCV Negative 133 Urinalysis GLUCOSE Negative BILIRUBN Negative KETONE Trace BLOOD Large UR PH 6.5 PROTEIN Trace NITRITES Negative UROBILIN 0.2 LEUKOCYT Trace UA COLOR Yellow CLARITY Clear SP GRAV >=1.030 (H) UAMICRO Yes WBC 24 (H) RBC 266 (H) CASTS 5 (H) UR EPI 161 BACTERIA Many 1005 Urine Chemistry AMPHET Negative BARBIT Negative BENZO Negative CANNABS Negative COCAINE Negative OPIATES Negative PCP Negative 1005 Serology RPR Nonreactive CONTROL Pass 1005 Urinalysis GLUCOSE Negative BILIRUBN Negative KETONE Negative BLOOD Negative UR PH 7.5 PROTEIN Negative NITRITES Negative UROBILIN 0.2 LEUKOCYT Negative UA COLOR Yellow CLARITY Clear SP GRAV 1.020 UAMICRO No 1005 Hematology WBC 11.6 (H) RBC 4.32 HGB 12.3 HCT 37.7 MCV 87.3 MCH 28.5 MCHC 32.6 RDW 12.9 PLT 250 MPV 10.4 MANDIFF No SCAN No NEUT% 74.1 LYMPH% 17.8 (L) MONO% 4.3 EOS% 0.8 BASO 0.7 IG 0 IG% 2.3 (H) NRBC% 0 ABS NEUT 8.6 (H) 1005 Chemistry AHIV Negative HEPBSAG Negative Assessment Post Day # 1 Assessment Stable, Doing well Plan Routine care post delivery day 1 Electronically signed by ROSIE TOURE on [id number] noteLNROSIE LEDSEMA2024-04-03T08:23:15Pro jordon noteTXTAVAvailable for patient fqjj04842-7Srfkxdbk noteLNFIXEDFixed width textBHSSETBATRINITY HEALTH SHELBY [facility]PITAL+1(821) [phone] 7:09:49 [facility] Notes Date/Time Note Provider Source 2023-06-25 09:58:55 6592489zJBYdwitpL5pfYZZmOr+DrK99ev8 frhMKTbzXX5TGJFBo3ny1sc/1/aPD0pAqDA x9410-90-97D80:58:55Labor finding ; 10474-6VwxlvqsxtkhEIECQKFUMFMROHDR2 .16.840.1.538430.3.1579.87598058999 5.1.100|79655901|2.16.840.1.041939. 10.20.22.2.8AVAvailable for patient wxcgFsmpzizOlsxnxterPVHKb41 [place] NarrativeMASSENA MEMORIAL HOSPITALETVIB[facility]+7(278)[phone] 9:58:55 [facility] 2023-06-25 09:58:55 8291085Be2mH6/LTxRVDvKv00zCR9NTCz9/ 8POjzSm3FcPx6nmZxUoB7wR/v24FC6AxtQq R2123-55-95Y21:58:55+ ---------+--------+ +--------+ +-- + +-- --------+ +| DISCHARGE MEDICATIONS | | | | | | | | || Status | RXNORM | Medication | Dose | Route | Frequency | Dates | Comments | Updated By |+ +========+ +====== ==+ + ====+ + + +| Continued | 459318 | famotidine | 0 mg | | | Prescribed: June 20, 2023 11:09:08 AM UTC | | MALBAYAN on June 20, 2023 11:09:08 AM UTC |+ +--------+ +------ --+ + ----+ + + +| Continued | | vitamin 27-0.8 MG | 1 TAB | | | Prescribed: June 20, 2023 11:09:08 AM UTC | | MALBAYAN on June 20, 2023 11:09:08 AM UTC |+ +--------+ +------ --+ + ----+ + + +| Continued | | vitamin 27-0.8 MG | 1 TAB | BY MOUTH | DAILY | Prescribed: June 20, 2023 11:09:08 AM UTC | | MALBAYAN on June 20, 2023 11:09:08 AM UTC |+ +--------+ +------ --+ + ----+ + + +| Continued | 059198 | acetaminophen | 650 mg | BY MOUTH | EVERY 4 HOURS NEEDED | Prescribed: June 20, 2023 11:09:08 AM UTC | | MALBAYAN on June 20, 2023 11:09:08 AM UTC |+ +--------+ +------ --+ + ----+ + + +| Continued | [id number] | ibuprofen | 800 mg | BY MOUTH | EVERY 8 HOURS NEEDED | Prescribed: June 20, 2023 11:09:08 AM UTC | | MALBAYAN on June 20, 2023 11:09:08 AM UTC |+ +--------+ +------ --+ + ----+ + + ++ +--------+ ---+ + +----- -----+ + ----+ +| PATIENT OPEN ORDERS | | | | | | | | || Code | System | Description | Frequency | Occurrences | Priority | Start Date | Ordering Physician | Updated By |+ +========+======== =====+ + +=== =======+ + ======+ +| Patient open order information is not available. | | | | | | | | |+ +--------+-------- -----+ + +--- -------+ + ------+ ++ +--------+ +- -------+ + --+| SCHEDULED PROCEDURES | | | | | || Code | System | Description | Status | Scheduled Date | Updated By |+ +======== + +========+ =====+ +| Patient scheduled procedure information is not available. | | | | | |+ +-------- + +--------+ -----+ +48097-0Ddrv of TreatmentLNTREATMENT PLANTXT2.16.840.1.892892.3.1579.777 848679414.1.100|32269544|2.16.840.1 .992662.10.20.22.2.10AVAvailable for patient axbzUlhpxxiIlcgbscflBCDLj65 Section NarrativeNARRATIVEFormatted C-CDA narrative textBHSSETBAPTIST DYLAN HOSPITAL+1(610)[phone] 9:58:55 [facility] 2023-06-25 09:58:55 [id number]/NHdZZctRUf4K ZW4cOnw0taiRqNc2Km+WFD8ZzGZnzLgK2bk I2900-64-66D68:58:55PATIENT GOALS+ + + -------+| Goal | Assigned Date | Updated By |+ + +=== ===+| *ENSURE CARE PLAN INTERVENTIONS FOR W.S. PATIENTS ARE ACHIEVED | June 18, 2023 | KEQ5GYG on June 18, 2023 9:45:15 PM [facility] |+ + +--- ---+| PATIENT OR SIGNIFICANT OTHER WILL CONVEY UNDERSTANDING ABOUT THEIR PLAN OF CARE | June 18, 2023 | YPJ3CCR on June 18, 2023 9:45:30 PM [facility] || INCLUDING ILLNESS, MEDICAL CARE, IMPORTANCE OF MEDICATION THERAPY OR TREATMENT | | || REGIMEN PRESCRIBED. THEY KNOW WHERE TO SEEK ASSISTANCE AND RETURNS | | || DEMONSTRATION OF PROCEDURES WITHOUT DIFFICULTY. | | |+ + +--- ---+54321-6ScaviXMWQOPRKDM4.16.840. 1.425970.3.1579.494382928034.1.100| 12222583|2.16.840.1.854140.10.20.22 .2.60AVAvailable for patient lyipJxqnvzxGkzrqffkbVHGXt68 Section NarrativeNARRATIVEFormatted C-CDA dannielle textMASSENA MEMORIAL HOSPITALETVIB[facility]+2(022)[phone] 9:58:55 [facility] 2023-06-25 09:58:55 5938816oq084ClFbjFfk2O6nIa6htImVrjb g9v9/5EIP08RxlJIcxYi2oacW2wY4bjwQfv Q6682-09-40M85:58:55CARE TEAM+ + ----+--------+ ---------+ -----+ +| Member | Role on Team | Status | Start Date | End Date | Updated By |+ + -+--------+ ------+ --+ ---------+| KHUSHBOO SIU | Surgeon | normal | June 19, 2023 5:00:00 AM UTC | June 21, 2023 5:40:00 PM UTC | VGS2UOU on June 25, 2023 4:01:27 AM UTC |+ + -+--------+ ------+ --+ ---------+| MENDOZA-TATIANA SIU | PCP | normal | June 18, 2023 8:20:16 PM UTC | June 21, 2023 5:40:00 PM UTC | QEH5PKX on June 25, 2023 4:01:27 AM UTC |+ + -+--------+ ------+ --+ ---------+| MENDOZA-TATIANA SIU | Referring | normal | June 18, 2023 8:20:16 PM UTC | June 21, 2023 5:40:00 PM UTC | VSC2JXR on June 25, 2023 4:01:27 AM UTC |+ + -+--------+ ------+ --+ ---------+| KHUSHBOO SIU | Attending | normal | June 18, 2023 8:20:16 PM UTC | June 21, 2023 5:40:00 PM UTC | BTU4NBI on June 25, 2023 4:01:27 AM UTC |+ + -+--------+ ------+ --+ ---------+| KHUSHBOO SIU | Admitting | normal | June 18, 2023 8:20:16 PM UTC | June 21, 2023 5:40:00 PM UTC | RGI9NVS on June 25, 2023 4:01:27 AM UTC |+ + -+--------+ ------+ --+ ---------+39287-9Hpsedde Care team informationLNCARE TEAMTXT2.16.840.1.622920.3.1579.777 182560203.1.100|37110269|2.16.840.1 .143385.10.20.22.2.500AVAvailable for patient ezheMcvkjquZzlhuhdkmTGMDs51 Section NarrativeNARRATIVEFormatted C-CDA narrative textABHIVIBRA HOSPITAL OF [facility]+1(441) [phone] 9:58:55 [facility] 2023-06-21 12:44:59 1005593dRYRzyrhtO6xjUPRjUo+FuI44ns5 hwhNRRxrFO1QFLLSr9ju3co/1/vRQ5dHgMA g5430-93-08F32:44:59Labor finding ; 65021-5IsurnlxqpfuDIFQYLEWTZCDYVEG3 .16.84[id number] 5.1.100|[id number]|2.16.840.1.614309. 10.20.22.2.8AVAvailable for patient rgtsBrxfipzTrugjviwtVWSUr37 [facility]+1(507) [id number] 2:44:59 [facility] 2023-06-21 12:44:59 [id number]/XOvBGWiTl89bBX8FUUl8/ 1YPooOs4SxCr9nbKoFjI7bE/e19UP8EsqCr W3281-08-31H03:44:59+ ---------+--------+ +--------+ +-- + +-- --------+ +| DISCHARGE MEDICATIONS | | | | | | | | || Status | RXNORM | Medication | Dose | Route | Frequency | Dates | Comments | Updated By |+ +========+ +====== ==+ + ====+ + + +| Continued | [id number] | famotidine | 0 mg | | | Prescribed: June 20, 2023 11:09:08 AM [facility] | | KERVINBAYAN on June 20, 2023 11:09:08 AM [facility] |+ +--------+ +------ --+ + ----+ + + +| Continued | | vitamin 27-0.8 MG | 1 TAB | | | Prescribed: June 20, 2023 11:09:08 AM UTC | | MALBAYAN on June 20, 2023 11:09:08 AM UTC |+ +--------+ +------ --+ + ----+ + + +| Continued | | vitamin 27-0.8 MG | 1 TAB | BY MOUTH | DAILY | Prescribed: June 20, 2023 11:09:08 AM UTC | | MALBAYAN on June 20, 2023 11:09:08 AM UTC |+ +--------+ +------ --+ + ----+ + + +| Continued | [id number] | acetaminophen | 650 mg | BY MOUTH | EVERY 4 HOURS NEEDED | Prescribed: June 20, 2023 11:09:08 AM UTC | | MALBAYAN on June 20, 2023 11:09:08 AM UTC |+ +--------+ +------ --+ + ----+ + + +| Continued | | ibuprofen | 800 mg | BY MOUTH | EVERY 8 HOURS NEEDED | Prescribed: June 20, 2023 11:09:08 AM UTC | | KERVINBAYAN on June 20, 2023 11:09:08 AM UTC |+ +--------+ +------ --+ + ----+ + + ++ +--------+ ---+ + +----- -----+ + ----+ +| PATIENT OPEN ORDERS | | | | | | | | || Code | System | Description | Frequency | Occurrences | Priority | Start Date | Ordering Physician | Updated By |+ +========+======== =====+ + +=== =======+ + ======+ +| Patient open order information is not available. | | | | | | | | |+ +--------+-------- -----+ + +--- -------+ + ------+ ++ +--------+ +- -------+ + --+| SCHEDULED PROCEDURES | | | | | || Code | System | Description | Status | Scheduled Date | Updated By |+ +======== + +========+ =====+ +| Patient scheduled procedure information is not available. | | | | | |+ +-------- + +--------+ -----+ +28128-8Nzfx of TreatmentLNTREATMENT PLANTXT2.16.840.1.503826.3.1579.777 [id number]|[id number]|2.16.840.1 .249352.10.20.22.2.10AVAvailable for patient lmujPwkrttoFpkiuzpgsNWMSv49 Section NarrativeNARRATIVEFormatted C-CDA narrative textMASSENA MEMORIAL HOSPITALETVIB[facility]+[id number] 2:44:59 [facility] 2023-06-21 12:44:59 [id number]/TJzDVarUIm6N GP6iWlh9ixiZtAj7Pg+BAU4RlQKnhDqW9mq R5801-04-62V62:44:59PATIENT GOALS+ + + -------+| Goal | Assigned Date | Updated By |+ + +=== ===+| *ENSURE CARE PLAN INTERVENTIONS FOR W.S. PATIENTS ARE ACHIEVED | June 18, 2023 | [id number] on June 18, 2023 9:45:15 PM UT |+ + +--- ---+| PATIENT OR SIGNIFICANT OTHER WILL CONVEY UNDERSTANDING ABOUT THEIR PLAN OF CARE | June 18, 2023 | PCT3MGY on June 18, 2023 9:45:30 PM [facility] || INCLUDING ILLNESS, MEDICAL CARE, IMPORTANCE OF MEDICATION THERAPY OR TREATMENT | | || REGIMEN PRESCRIBED. THEY KNOW WHERE TO SEEK ASSISTANCE AND RETURNS | | || DEMONSTRATION OF PROCEDURES WITHOUT DIFFICULTY. | | |+ + +--- ---+[id number]. 1.518758.3.1579.398147381805.1.100| [id number]|2.16.840.1.902318.10.20.22 .2.60AVAvailable for patient tihmYvfjkccVarfiiqtaQXAZe68 Section NarrativeNARRATIVEFormatted C-CDA [facility]+1([id number] 2:44:59 [facility] 2023-06-21 12:44:59 [id number]/F6UXRL+gPrH8eAOEuv8dUNO5Z OXYBH6zFwXQDzTK35RI0NUtpbgpzaYB0Ei2 O8301-65-74K92:44:59CARE TEAM+ + ----+--------+ ---------+ -----+ +| Member | Role on Team | Status | Start Date | End Date | Updated By |+ + -+--------+ ------+ --+ ---------+| KHUSHBOO SIU | PCP | normal | June 18, 2023 8:20:16 PM UTC | June 21, 2023 5:40:00 PM UTC | [id number] on June 18, 2023 8:20:16 PM UTC |+ + -+--------+ ------+ --+ ---------+| KHUSHBOO SIU | Referring | normal | June 18, 2023 8:20:16 PM UTC | June 21, 2023 5:40:00 PM UTC | UKL7ZRU on June 18, 2023 8:20:16 PM UTC |+ + -+--------+ ------+ --+ ---------+| KHUSHBOO SIU | Attending | normal | June 18, 2023 8:20:16 PM UTC | June 21, 2023 5:40:00 PM UTC | TKN9AYG on June 18, 2023 8:20:16 PM UTC |+ + -+--------+ ------+ --+ ---------+| KHUSHBOO SIU | Admitting | normal | June 18, 2023 8:20:16 PM UTC | June 21, 2023 5:40:00 PM UTC | CWK3ZLR on June 18, 2023 8:20:16 PM UTC |+ + -+--------+ ------+ --+ ---------+92668-0Dywwmqt Care team informationLNCARE TEAMTXT2.16.840.1.039703.3.1579.777 [id number]|[id number]|2.16.840.1 .810494.10.20.22.2.500AVAvailable for patient rpmkNovjbxwKxkcpwunbAGZXd36 Section NarrativeNARRATIVEFormatted C-CDA [facility]+[id number] 2:44:59 [facility] 2023-06-21 07:39:23 [id number]/d85Ed95k5sx6MIbHK1k08 U8lyXLwqlxDM54cQ7cpnDCgnRuci8vux851 L0841-46-81I44:39:23CARE TEAM+ + ----+--------+ ---------+ -----+ +| Member | Role on Team | Status | Start Date | End Date | Updated By |+ + -+--------+ ------+ --+ ---------+| KHUSHBOO SIU | Attending | normal | June 18, 2023 5:28:42 AM UTC | June 18, 2023 7:55:00 AM UTC | NCT7EZN on June 18, 2023 5:28:42 AM UTC |+ + -+--------+ ------+ --+ ---------+| KHUSHBOO SIU | Admitting | normal | June 18, 2023 5:28:42 AM UTC | June 18, 2023 7:55:00 AM UTC | XVN4YAP on June 18, 2023 5:28:42 AM UTC |+ + -+--------+ ------+ --+ ---------+| KHUSHBOO SIU | Referring | normal | June 18, 2023 5:26:26 AM UTC | June 18, 2023 7:55:00 AM UTC | ZIA2NHD on June 18, 2023 5:28:42 AM UTC |+ + -+--------+ ------+ --+ ---------+| JOSUE SORENSEN | Attending | normal | June 18, 2023 5:26:26 AM UTC | June 18, 2023 5:28:42 AM UTC | IQQ5RSS on June 18, 2023 5:28:42 AM UTC |+ + -+--------+ ------+ --+ ---------+| JOSUE SORENSEN | Admitting | normal | June 18, 2023 5:26:26 AM UTC | June 18, 2023 5:28:42 AM UTC | SPW9IAY on June 18, 2023 5:28:42 AM UTC |+ + -+--------+ ------+ --+ ---------+| KHUSHBOO SIU | PCP | normal | June 18, 2023 5:26:25 AM UTC | June 18, 2023 7:55:00 AM UTC | PNH2QGV on June 18, 2023 5:28:42 AM UTC |+ + -+--------+ ------+ --+ ---------+42788-6Lintcco Care team informationLNCARE TEAMTXT2.16.840.1.731343.3.1579.777 [id number]|[id number]|2.16.840.1 .417033.10.20.22.2.500AVAvailable for patient qqwtBnnbfhxLqwowjcjgAVDDm58 Section NarrativeNARRATIVEFormatted C-CDA narrative textGI[facility]+1(659)[id number] 7:39:23 [facility] 2023-06-18 15:59:04 [id number]/oRmegMZrKr5RRh1Et+nS8 UQF0m3rlUPc8UDA5LxO3gVOqv7cwn5uzqPw s5346-77-21E82:59:04CARE TEAM+ + ----+--------+ + -------+ +| Member | Role on Team | Status | Start Date | End Date | Updated By |+ + -+--------+ -------+ ----+ +| KHUSHBOO SIU | PCP | normal | June 15, 2023 5:00:00 AM UTC | June 15, 2023 3:02:00 PM UTC | FJS5HJH on June 18, 2023 8:16:53 PM UTC |+ + -+--------+ -------+ ----+ +| KHUSHBOO SIU | Referring | normal | June 15, 2023 5:00:00 AM UTC | June 15, 2023 3:02:00 PM UTC | GHJ8RZA on June 18, 2023 8:16:53 PM UTC |+ + -+--------+ -------+ ----+ +| KHUSHBOO SIU | Attending | normal | June 15, 2023 5:00:00 AM UTC | June 15, 2023 3:02:00 PM UTC | YRR0YEE on June 18, 2023 8:16:53 PM UTC |+ + -+--------+ -------+ ----+ +| KHUSHBOO SIU | Admitting | normal | June 15, 2023 5:00:00 AM UTC | June 15, 2023 3:02:00 PM UTC | QVJ6UQV on June 18, 2023 8:16:53 PM UTC |+ + -+--------+ -------+ ----+ +70196-0Prcqxta Care team informationLNCARE TEAMTXT2.16.840.1.471672.3.1579.777 [id number]|[id number]|2.16.840.1 .345313.10.20.22.2.500AVAvailable for patient qhrfKidhqkiHfxlaugsdRWYVz40 Section NarrativeNARRATIVEFormatted C-CDA narrative textBHSSETBAPTIST [facility]+6(103)[id number] 5:59:04 [facility] 2023-06-18 15:44:26 [id number]+MFw9AhB8pbHeL8T4nm w2VWOpQo/qQsO8RlNLp17ldpRJW/7HnNR/o o6967-43-06D91:44:26CARE TEAM+ + ----+--------+ + -------+ +| Member | Role on Team | Status | Start Date | End Date | Updated By |+ + -+--------+ -------+ ----+ +| KHUSHBOO SIU | PCP | normal | June 04, 2023 5:00:00 AM UTC | June 04, 2023 6:33:00 PM UTC | XDH7ZDY on June 18, 2023 7:41:13 PM UTC |+ + -+--------+ -------+ ----+ +| KHUSHBOO SIU | Referring | normal | June 04, 2023 4:02:55 PM UTC | June 04, 2023 6:33:00 PM UTC | HSZ2OLK on June 18, 2023 7:41:13 PM UTC |+ + -+--------+ -------+ ----+ +| KHUSHBOO SIU | Attending | normal | June 04, 2023 4:02:55 PM UTC | June 04, 2023 6:33:00 PM UTC | XXS8LYH on June 18, 2023 7:41:13 PM UTC |+ + -+--------+ -------+ ----+ +| KHUSHBOO KERVINZAYRABENNETT | Admitting | normal | June 04, 2023 4:02:55 PM UTC | June 04, 2023 6:33:00 PM UTC | USW7KRD on June 18, 2023 7:41:13 PM UTC |+ + -+--------+ -------+ ----+ +45524-2Xlangja Care team informationLNCARE TEAMTXT2.16.840.1.518423.3.1579.777 [id number]|[id number]|2.16.840.1 .019612.10.20.22.2.500AVAvailable for patient oodvBwydhsaOljqwlbroJPBRg38 Section NarrativeNARRATIVEFormatted C-CDA narrative textGI[facility]+[phone])[id number] 5:44:26 [facility] 2023-06-18 12:57:22 [id number]/i79Kp31q8em6QFdWS1e26 O1kyXGmqowOO11bJ9uuoMKavOyhe2ibo476 N6364-17-95O12:57:22CARE TEAM+ + ----+--------+ ---------+ -----+ +| Member | Role on Team | Status | Start Date | End Date | Updated By |+ + -+--------+ ------+ --+ ---------+| KHUSHBOO SIU | Attending | normal | June 18, 2023 5:28:42 AM UTC | June 18, 2023 7:55:00 AM UTC | PJQ0TPG on June 18, 2023 5:28:42 AM UTC |+ + -+--------+ ------+ --+ ---------+| KHUSHBOO SIU | Admitting | normal | June 18, 2023 5:28:42 AM UTC | June 18, 2023 7:55:00 AM UTC | UCV4ZTN on June 18, 2023 5:28:42 AM UTC |+ + -+--------+ ------+ --+ ---------+| KHUSHBOO SIU | Referring | normal | June 18, 2023 5:26:26 AM UTC | June 18, 2023 7:55:00 AM UTC | OSU5YRP on June 18, 2023 5:28:42 AM UTC |+ + -+--------+ ------+ --+ ---------+| JOSUE SORENSEN | Attending | normal | June 18, 2023 5:26:26 AM UTC | June 18, 2023 5:28:42 AM UTC | HQC6TEJ on June 18, 2023 5:28:42 AM UTC |+ + -+--------+ ------+ --+ ---------+| JOSUE SORENSEN | Admitting | normal | June 18, 2023 5:26:26 AM UTC | June 18, 2023 5:28:42 AM UTC | KZB7TCS on June 18, 2023 5:28:42 AM UTC |+ + -+--------+ ------+ --+ ---------+| KHUSHBOO SIU | PCP | normal | June 18, 2023 5:26:25 AM UTC | June 18, 2023 7:55:00 AM UTC | QHK4GNM on June 18, 2023 5:28:42 AM UTC |+ + -+--------+ ------+ --+ ---------+37527-9Qgvzbgm Care team informationLNCARE TEAMTXT2.16.840.1.391281.3.1579.777 [id number]|[id number]|2.16.840.1 .608931.10.20.22.2.500AVAvailable for patient hcwtLtqdepdLgjefrdhwJLDDg79 Section NarrativeNARRATIVEFormatted C-CDA narrative textGI[facility]+[id number] 2:57:22 [facility] 2023-06-18 12:29:43 [id number]/z37Yt06u4ih9XKsYM7l71 P4lvYSbetfEW94aQ1ipeEAjrLyzb5dou579 F3985-41-91F12:29:43CARE TEAM+ + ----+--------+ ---------+ -----+ +| Member | Role on Team | Status | Start Date | End Date | Updated By |+ + -+--------+ ------+ --+ ---------+| KHUSHBOO SIU | Attending | normal | June 18, 2023 5:28:42 AM UTC | June 18, 2023 7:55:00 AM UTC | DWS5CSP on June 18, 2023 5:28:42 AM UTC |+ + -+--------+ ------+ --+ ---------+| KHUSHBOO SIU | Admitting | normal | June 18, 2023 5:28:42 AM UTC | June 18, 2023 7:55:00 AM UTC | QLD1HEO on June 18, 2023 5:28:42 AM UTC |+ + -+--------+ ------+ --+ ---------+| KHUSHBOO SIU | Referring | normal | June 18, 2023 5:26:26 AM UTC | June 18, 2023 7:55:00 AM UTC | WOA9XPQ on June 18, 2023 5:28:42 AM UTC |+ + -+--------+ ------+ --+ ---------+| JOSUE SORENSEN | Attending | normal | June 18, 2023 5:26:26 AM UTC | June 18, 2023 5:28:42 AM UTC | TCB7UAP on June 18, 2023 5:28:42 AM UTC |+ + -+--------+ ------+ --+ ---------+| JOSUE SORENSEN | Admitting | normal | June 18, 2023 5:26:26 AM UTC | June 18, 2023 5:28:42 AM UTC | LGU6SHI on June 18, 2023 5:28:42 AM UTC |+ + -+--------+ ------+ --+ ---------+| KHUSHBOO SIU | PCP | normal | June 18, 2023 5:26:25 AM UTC | June 18, 2023 7:55:00 AM UTC | YKS1EKS on June 18, 2023 5:28:42 AM UTC |+ + -+--------+ ------+ --+ ---------+66006-4Mhdcpnm Care team informationLNCARE TEAMTXT2.16.840.1.572218.3.1579.777 [id number]|[id number]|2.16.840.1 .318808.10.20.22.2.500AVAvailable for patient tgihZhorczfMoebsgscgFSMGq80 Section NarrativeNARRATIVEFormatted C-CDA narrative textMASSENA MEMORIAL HOSPITALETVIB[facility]+[id number] 2:29:43 [facility] 2023-06-04 13:49:03 [id number]ETlh qB5B+H0h25S5Enf6HphQ1vStifesULiOLlN U7200-21-07G03:49:03CARE TEAM+ + ----+--------+ + -------+ +| Member | Role on Team | Status | Start Date | End Date | Updated By |+ + -+--------+ -------+ ----+ +| KHUSHBOO SIU | Referring | normal | June 04, 2023 4:02:55 PM UTC | June 04, 2023 6:33:00 PM UTC | DQZ3WEH on June 04, 2023 4:02:55 PM UTC |+ + -+--------+ -------+ ----+ +| KHUSHBOO SIU | Attending | normal | June 04, 2023 4:02:55 PM UTC | June 04, 2023 6:33:00 PM UTC | QQH5XGG on June 04, 2023 4:02:55 PM UTC |+ + -+--------+ -------+ ----+ +| KHUSHBOO SIU | Admitting | normal | June 04, 2023 4:02:55 PM UTC | June 04, 2023 6:33:00 PM UTC | VTZ3AMI on June 04, 2023 4:02:55 PM UTC |+ + -+--------+ -------+ ----+ +97277-3Vcxlulk Care team informationLNCARE TEAMTXT2.16.840.1.424869.3.1579.777 [id number]|[id number]|2.16.840.1 .979656.10.20.22.2.500AVAvailable for patient xhpvXybqpmjXakqqfmcgVQXWf82 Section NarrativeNARRATIVEFormatted C-CDA narrative textBHSSETVIBRA HOSPITAL OF [facility]+[id number] 3:49:03 [facility] 2023-06-04 11:47:11 JTxknutcijo280377741qLGEpRgXFAlogUC X6eOqLkayAPJTuPZpqD80boGETCMoq0p1Yk CT/f8uJ0eim1473-37-47H57:47:11[place] [address] DIAGNOSTIC IMAGING REPORT Patient Name: Chace ROJO of Service: [id number]: 28 Sex: F Order #: [id number] Room: [facility] 3LDRDOB: 1995 X-Ray Number: [id number] Record Number: [id number] Hospital Number: [id number] Physician[facility] Physician: SALBADOR CUELLO BIOPHYSICAL PROFILE06/04/2023 11:41 AMHistory: well-being.Comparison: No prior imaging available.Technique: Transabdominal grayscale and color Doppler imaging of the fetuswas performed with particular attention paid to the elements of fetalbiophysical profile over 30 minutes.Findings:There is a single live intrauterine gestation in the cephalicpresentation. The placenta is anterior. The PANCHITO measures 8.6 cm (N 5-25cm). There is cardiac motion present at 125 bpm.BPP:Tone 2Movement 2Breathing 2Amniotic fluid volume 2Total: 8/8IMPRESSION:Normal BPP of 8/8.Electronically Signed By: Estephania Russell Jr, MD, 06/04/2023 11:47 AM Legally authenticated by PANCHO MONTALVO 2023-06-04 11:47:87RSJdeoreyqcpeaypnju86370QXE RES, YRRNGGCMJUXEMTVBKQAKGR3917-73-05U18 :47:[id number] [id number] S, ACANUYVXBIHKZGEQISXM2663-99-33L09:4 9:43 SELVIN RUSSELL KENZIE
[2023-07-21] MEDS ORDERED: FAMOTIDINE 20 MG/2 ML VIAL IV ONE (04:57)
[2023-07-21] MEDS ORDERED: ONDANSETRON 4 MG/2 ML VIAL ONE (04:57)
[2023-07-21] MEDS ORDERED: NA CHLORIDE 0.9% 1,000 ML ONE (04:57)
[2023-07-21 05:14] LABS: Absolute Basophils 0.1 K/uL (0-0.5); Absolute Eosinophils 0.1 K/uL (0-0.5); Absolute Lymphocytes (CBC) 2.1 K/uL (0.7-4.9); Absolute Monocytes 0.9 K/uL (0.1-1.3); Absolute Neutrophil 8.2 K/uL (1.8-8.0); Basophils % 0.5 % (0-1.3); Eosinophils % 0.8 % (0-4.4); Hemoglobin 13.3 g/dL (12.0-15.0); Lymphocytes % 18.5 % (15.3-44.8); MCH 29.2 pg (27.0-35.0); MCHC 33.3 g/dL (32.0-36.0); MCV 87.8 fL (80-100); MPV 8.3 fL (7.6-11.3); Monocytes % 7.7 % (3.3-12.3); Neutrophils % 72.5 % (41.7-73.7); Nucleated Red Blood Cells % 0.1 % (0-0); Platelets 290 thou/uL (152-406); RBC Red Blood Cell Count 4.56 M/uL (3.86-4.86); Red Cell Distribution Width 13.2 % (12.1-15.2)
[2023-07-21 05:16] LABS: Specific Gravity 1.022 (1.005-1.030)
[2023-07-21 05:17] LABS: Specific Gravity 1.022 (1.005-1.030); Urine Bacteria None Seen /HPF (<20); Urine Bilirubin NEGATIVE (Negative); Urine Blood 2+ (Negative); Urine Clarity Extremely Turbid (Clear); Urine Color Yellow (Yellow); Urine Culture Reflex Order REFLEXED; Urine Glucose NEGATIVE (Negative); Urine Ketones NEGATIVE (Negative); Urine Microscopic Reflex YN ORDER UMIC; Urine Mucus Slight /HPF (None Seen); Urine Nitrite NEGATIVE (Negative); Urine Protein NEGATIVE (Negative); Urine Urobilinogen Normal (Normal); Urine pH 5.5 (5.0-7.0)
--- NOTE | 2023-07-21 05:26 | ER ---
Nurse's Notes [facility] Name: Heber Magdaleno Age: 28 yrs Sex: Female : 1995 Arrival Date: 07/21/2023 Time: 04:42 Bed 20 Private MD: Diagnosis: Other cholelithiasis with obstruction;Calculus of gallbladder and bile duct with acute cholecystitis with obstruction-CHOLEDOCOLITHIASIS;UTI/ Urinary tract infection, site not specified Presentation: 07/20 04:52 Chief complaint: Patient states: I recently had an ultrasound on my gallbladder. The jb4 tech said it looked like gallstones. I was waiting on the DrSebas to read it. Tonight the pain is worse. I took 500mg of naproxen COLLECTIONS ASSISTANT. Coronavirus screen: At this time, the client does not indicate any symptoms associated with coronavirus-19. Ebola Screen: No symptoms or risks identified at this time. Initial Sepsis Screen: Does the patient meet any 2 criteria? No. Patient's initial sepsis screen is negative. Does the patient have a suspected source of infection? No. Patient's initial sepsis screen is negative. Risk Assessment: Do you want to hurt yourself or someone else? Patient reports no desire to harm self or others. Onset of symptoms was July 21, 2023. Transition of care: patient was not received from another setting of care. 04:52 Method Of Arrival: Ambulatory [facility] 04:52 Acuity: TODD 3 jb4 Historical: - Allergies: 04:54 No Known Allergies; jb4 - PMHx: 04:54 Gallstone; jb4 - PSHx: 04:54 None; jb4 - Immunization history:: Adult Immunizations up to date. - Infectious Disease History:: Denies. - Social history:: Smoking status: Patient denies any tobacco usage or history of. - Family history:: not pertinent. Screenin:09 [facility] ED Fall Risk Assessment (Adult) History of falling in the last 3 months, lg3 including since admission No falls in past 3 months (0 pts) Confusion or Disorientation No (0 pts) Intoxicated or Sedated No (0 pts) Impaired Gait No (0 pts) Mobility Assist Device Used No (0 pt) Altered Elimination No (0 pt) Score/Fall Risk Level 0 - 2 = Low Risk Oriented to surroundings, Maintained a safe environment, Educated pt \\T\\ family on fall prevention, incl call for assistance when getting out of bed, Assessed \\T\\ reinforced patient's understanding of fall precautions. Abuse screen: Denies threats or abuse. Denies injuries from another. Nutritional screening: No deficits noted. Tuberculosis screening: No symptoms or risk factors identified. Assessment: 05:09 General: Appears in no apparent distress. uncomfortable, Behavior is calm, cooperative. lg3 Pain: Complains of pain in diaphragm Pain radiates to back Pain currently is 7 out of 10 on a pain scale. Neuro: No deficits noted. Romero Agitation-Sedation Scale (RASS): 0 - Alert and Calm Level of Consciousness is awake, alert, obeys commands, Oriented to person, place, time, situation. Cardiovascular: No deficits noted. Denies chest pain, shortness of breath, Capillary refill < 3 seconds Clubbing of nail beds is absent JVD is absent Patient's skin is warm and dry. Cardiovascular: Heart tones S1 S2 present. Respiratory: No deficits noted. Airway is patent Respiratory effort is even, unlabored, Respiratory pattern is regular, symmetrical. GI: Abdomen is round non-distended, Bowel sounds present X 4 quads. Abd is soft X 4 quads Abdomen is tender to palpation in epigastric area Reports upper abdominal pain, cramping, epigastric pain, nausea. : No deficits noted. No signs and/or symptoms were reported regarding the genitourinary system. EENT: No deficits noted. No signs and/or symptoms were reported regarding the EENT system. Derm: No deficits noted. No signs and/or symptoms reported regarding the dermatologic system. Skin is intact, is healthy with good turgor, Skin is dry, Skin is normal, Skin temperature is warm. Musculoskeletal: No deficits noted. No signs and/or symptoms reported regarding the musculoskeletal system. Circulation, motion, and sensation intact. Range of motion: intact in all extremities. 06:44 Reassessment: Patient appears in no apparent distress at this time. No changes from lg3 previously documented assessment. Patient and/or family updated on plan of care and expected duration. Pain level reassessed. Patient is alert, oriented x 3, equal unlabored respirations, skin warm/dry/pink. 07:38 Reassessment: Attempted to call report X 3. Waited on hold for 30 minutes. Called ld1 charge nurse to notify. Stated "We are in the middle of shift change." This nurse told charge nurse to call when ready for report - pt enroute to [facility]. 08:05 Reassessment: Report given to JONAS Tapia. ld1 Vital Signs: 04:52 BP 146 / 101; Pulse 81; Resp 16; Temp 97.9(O); Pulse Ox 100% on R/A; Weight 88.9 kg jb4 (R); Height 5 ft. 2 in. ; Pain 7/10; 05:47 BP 135 / 96; Pulse 86; Resp 16 S; Pulse Ox 100% on R/A; lg3 06:58 BP 132 / 87; Pulse 58; Resp 17 S; Pulse Ox 98% on R/A; lg3 07:30 BP 134 / 84; Pulse 58; Resp 18; Pulse Ox 99% on R/A; ld1 08:44 BP 119 / 76; Pulse 66; Resp 18; Pulse Ox 100% on R/A; ld1 04:52 Body Mass Index 35.85 (88.90 kg, 157.48 cm) jb4 04:52 Pain Scale: Adult jb4 ED Course: 04:44 Patient arrived in ED. jj6 04:46 Alex Brannon MD is Attending Physician. alexandra 04:54 Triage completed. jb4 04:54 Arm band placed on right wrist. jb4 05:09 Patient has correct armband on for positive identification. Placed in gown. Bed in low lg3 position. Call light in reach. Side rails up X 1. Client placed on continuous cardiac and pulse oximetry monitoring. NIBP monitoring applied. Door closed. Noise minimized. Warm blanket given. Family accompanied patient. 05:09 Inserted saline lock: 22 gauge in right forearm, using aseptic technique. Blood lg3 collected. 05:22 US Abdomen Limited In Process Unspecified. EDMS 05:47 Taina Roberts RN is Primary Nurse. lg3 07:42 called [facility] for transfer to [facility] talked to [facility]. sp 08:44 No provider procedures requiring assistance completed. Patient transferred, IV remains ld1 in place. Administered Medications: 05:11 Drug: NS 0.9% IV 1000 ml IV at 1 bolus Per protocol; 1000 mL bolus Route: IV; Rate: 1 lg3 bolus; Site: right forearm; 05:47 Follow up: Response: No adverse reaction; IV Status: Completed infusion; IV Intake: lg3 1000ml 05:11 Drug: Famotidine IVP 20 mg IVP once; dilute with 10 mL 0.9% NaCl; give over 2 minutes lg3 Route: IVP; Site: right forearm; 05:47 Follow up: Response: No adverse reaction lg3 05:11 Drug: Ondansetron IVP 4 mg IVP once; over 2 minutes Route: IVP; Site: right forearm; lg3 05:48 Follow up: Response: No adverse reaction lg3 05:45 Drug: Piperacillin-Tazobactam IVPB 3.375 grams IVPB once over 60 mins; (mix in NS 100 lg3 mL) Route: IVPB; Infused Over: 60 mins; Site: right forearm; 06:43 Follow up: Response: No adverse reaction; IV Status: Completed infusion; IV Intake: lg3 100ml 08:44 Not Given (Patient Refused): fentanyl (pf)25 mcg IVP once ld1 Medication: 08:45 VIS not applicable for this client. ld1 Intake: 05:47 IV: 1000ml; Total: 1000ml. lg3 06:43 IV: 100ml; Total: 1100ml. lg3 Outcome: 05:25 ER care complete, transfer ordered by MD. morris 08:45 Transferred by ground EMS to [facility], [facility], ld1 08:45 Condition: stable 08:45 Instructed on the need for transfer, 08:45 Patient left the ED. ld1 Signatures: Dispatcher [employer] EDMO Alex Brannon MD MD cha Pinkerton, Shawna sp Bryson, James, RN RN jb4 Taina Roberts RN RN lg3 Leeann Barnes RN RN ld1 Sheba Ndiaye jj6
--- NOTE | 2023-07-21 05:26 | EDPHYS ---
Physician Documentation [facility] Name: Heber Magdaleno Age: 28 yrs Sex: Female : 1995 Arrival Date: 07/21/2023 Time: 04:42 Bed 20 Private MD: JOANIE Physician Alex Brannon HPI: 07/20 05:15 This 28 yrs old Female presents to ER via Ambulatory with complaints of alexandra Abdominal Pain. 05:15 The patient presents with abdominal pain in the upper abdomen. Onset: The alexandra symptoms/episode began/occurred 1 day(s) ago. The symptoms radiate to right back. Associated signs and symptoms: Pertinent positives: nausea. Modifying factors: The symptoms are alleviated by nothing, the symptoms are aggravated by food. Historical: - Allergies: 04:54 No Known Allergies; jb4 - PMHx: 04:54 Gallstone; jb4 - PSHx: 04:54 None; jb4 - Immunization history:: Adult Immunizations up to date. - Infectious Disease History:: Denies. - Social history:: Smoking status: Patient denies any tobacco usage or history of. - Family history:: not pertinent. ROS: 05:15 Constitutional: Negative for fever, chills, and weight loss, Eyes: Negative for injury, alexandra pain, redness, and discharge, ENT: Negative for injury, pain, and discharge, Neck: Negative for injury, pain, and swelling, Cardiovascular: Negative for chest pain, palpitations, and edema, Respiratory: Negative for shortness of breath, cough, wheezing, and pleuritic chest pain, Back: Negative for injury and pain, : Negative for injury, bleeding, discharge, and swelling, MS/Extremity: Negative for injury and deformity, Skin: Negative for injury, rash, and discoloration, Neuro: Negative for headache, weakness, numbness, tingling, and seizure, Psych: Negative for depression, anxiety, suicide ideation, homicidal ideation, and hallucinations, Allergy/Immunology: Negative for hives, rash, and allergies, Endocrine: Negative for neck swelling, polydipsia, polyuria, polyphagia, and marked weight changes, Hematologic/Lymphatic: Negative for swollen nodes, abnormal bleeding, and unusual bruising, 05:15 Abdomen/GI: Positive for abdominal pain, nausea, Exam: 05:15 Constitutional: This is a well developed, well nourished patient who is awake, alert, alexandra and in no acute distress. Head/Face: Normocephalic, atraumatic. Eyes: Pupils equal round and reactive to light, extra-ocular motions intact. Lids and lashes normal. Conjunctiva and sclera are non-icteric and not injected. Cornea within normal limits. Periorbital areas with no swelling, redness, or edema. ENT: Nares patent. No nasal discharge, no septal abnormalities noted. Tympanic membranes are normal and external auditory canals are clear. Oropharynx with no redness, swelling, or masses, exudates, or evidence of obstruction, uvula midline. Mucous membranes moist. Neck: Trachea midline, no thyromegaly or masses palpated, and no cervical lymphadenopathy. Supple, full range of motion without nuchal rigidity, or vertebral point tenderness. No Meningismus. Chest/axilla: Normal chest wall appearance and motion. Nontender with no deformity. No lesions are appreciated. Cardiovascular: Regular rate and rhythm with a normal S1 and S2. No gallops, murmurs, or rubs. Normal PMI, no JVD. No pulse deficits. Respiratory: Lungs have equal breath sounds bilaterally, clear to auscultation and percussion. No rales, rhonchi or wheezes noted. No increased work of breathing, no retractions or nasal flaring. Back: No spinal tenderness. No costovertebral tenderness. Full range of motion. Skin: Warm, dry with normal turgor. Normal color with no rashes, no lesions, and no evidence of cellulitis. MS/ Extremity: Pulses equal, no cyanosis. Neurovascular intact. Full, normal range of motion. Neuro: Awake and alert, GCS 15, oriented to person, place, time, and situation. Cranial nerves II-XII grossly intact. Motor strength 5/5 in all extremities. Sensory grossly intact. Cerebellar exam normal. Normal gait. Psych: Awake, alert, with orientation to person, place and time. Behavior, mood, and affect are within normal limits. 05:15 Abdomen/GI: Inspection: abdomen appears normal, Bowel sounds: normal, Palpation: moderate abdominal tenderness, in the right upper quadrant, Liver: no appreciated palpable abnormalities, Hernia: not appreciated, Vital Signs: 04:52 BP 146 / 101; Pulse 81; Resp 16; Temp 97.9(O); Pulse Ox 100% on R/A; Weight 88.9 kg jb4 (R); Height 5 ft. 2 in. ; Pain 7/10; 05:47 BP 135 / 96; Pulse 86; Resp 16 S; Pulse Ox 100% on R/A; lg3 06:58 BP 132 / 87; Pulse 58; Resp 17 S; Pulse Ox 98% on R/A; lg3 07:30 BP 134 / 84; Pulse 58; Resp 18; Pulse Ox 99% on R/A; ld1 08:44 BP 119 / 76; Pulse 66; Resp 18; Pulse Ox 100% on R/A; ld1 04:52 Body Mass Index 35.85 (88.90 kg, 157.48 cm) jb4 04:52 Pain Scale: Adult jb4 MDM: 04:46 Patient medically screened. [facility] 05:18 Differential diagnosis: cholecystitis, Cholelithiasis, Hepatitis, Mesenteric ischemia alexandra or infarction, non-specific abd pain, Peptic Ulcer Disease, Pyelonephritis, urinary tract infection. Data reviewed: vital signs, nurses notes, lab test result(s), radiologic studies, ultrasound. Consideration of Admission/Observation Escalation of care including admission/observation considered. I considered the following discharge prescriptions or medication management in the emergency department Medications were administered in the Emergency Department. See MAR. Independent interpretation of the following test(s) in the Emergency Department Radiology Department Ultrasound: My interpretation is gallstones. Test considered but Not performed: CT: no ct abd pelvis. Historians other than the Patient: Spouse/Significant Other: spouse well informed. Care significantly affected by the following chronic conditions: sp 1 month. Counseling: I had a detailed discussion with the patient and/or guardian regarding the historical points, exam findings, and any diagnostic results supporting the discharge/admit diagnosis, lab results, radiology results, the need to transfer to another facility, for higher level of care, [facility] does not immediately have the required specialist. 06:25 Management of patient was discussed with the following: dr villanueva, transfer. [facility] 07/20 04:49 Order name: CBC with Diff; Complete Time: 05:31 [facility] 07/20 04:49 Order name: CMP; Complete Time: 05:35 [facility] 07/20 04:49 Order name: Lipase; Complete Time: 05:35 [facility] 07/20 04:49 Order name: Test, Urine; Complete Time: 05:21 alexandra 07/20 04:49 Order name: Urinalysis w/ reflexes; Complete Time: 05:21 [facility] 07/20 05:21 Order name: Urine Culture [facility] 07/20 04:49 Order name: US Abdomen Limited [facility] 07/20 04:49 Order name: IV Saline Lock; Complete Time: 05:12 alexandra 07/20 04:49 Order name: Labs collected and sent; Complete Time: 05:12 alexandra 07/20 06:51 Order name: NPO; Complete Time: 06:58 alexandra Administered Medications: 05:11 Drug: NS 0.9% IV 1000 ml IV at 1 bolus Per protocol; 1000 mL bolus Route: IV; Rate: 1 lg3 bolus; Site: right forearm; 05:47 Follow up: Response: No adverse reaction; IV Status: Completed infusion; IV Intake: lg3 1000ml 05:11 Drug: Famotidine IVP 20 mg IVP once; dilute with 10 mL 0.9% NaCl; give over 2 minutes lg3 Route: IVP; Site: right forearm; 05:47 Follow up: Response: No adverse reaction lg3 05:11 Drug: Ondansetron IVP 4 mg IVP once; over 2 minutes Route: IVP; Site: right forearm; lg3 05:48 Follow up: Response: No adverse reaction lg3 05:45 Drug: Piperacillin-Tazobactam IVPB 3.375 grams IVPB once over 60 mins; (mix in NS 100 lg3 mL) Route: IVPB; Infused Over: 60 mins; Site: right forearm; 06:43 Follow up: Response: No adverse reaction; IV Status: Completed infusion; IV Intake: lg3 100ml 08:44 Not Given (Patient Refused): fentanyl (pf)25 mcg IVP once ld1 Disposition Summary: 07/21/23 05:25 Transfer Ordered Notes: Transfer Location: [facility] alexandra Reason: Higher level of care alexandra Condition: Stable alexandra Problem: new alexandra Symptoms: have improved alexnadra Accepting Physician: to [facility](07/21/23 08:45) ld1 Diagnosis - Other cholelithiasis with obstruction alexandra - Calculus of gallbladder and bile duct with acute cholecystitis with obstruction - alexandra CHOLEDOCOLITHIASIS - UTI/ Urinary tract infection, site not specified alexandra Forms: - Medication Reconciliation Form alexandra - SBAR form alexandra Signatures: Dispatcher [employer] Alex Leigh MD MD cha Hall, Patricia RN RN Daniel Cleary RN RN jb4 Taina Roberts RN RN lg3 Leeann Barnes RN RN ld1 Corrections: (The following items were deleted from the chart) 05:34 05:25 to [facility] alexandra 08:45 05:34 to [facility]
[2023-07-21 05:33] LABS: Albumin 3.6 g/dL (3.4-5.0); Albumin/Globulin Ratio 0.9 (1.1-1.8); Anion Gap 9.9 mEq/L (5.0-15.0); Bilirubin Total 0.7 mg/dL (0.2-1.0); Globulin 3.8 g/dL (2.3-3.5); Protein, Total 7.4 g/dL (6.4-8.2)
[2023-07-21 05:34] LABS: Potassium 3.9 mEq/L (3.5-5.1)
[2023-07-21] MEDS ORDERED: PIPERACIL/TAZO 3.375 GM VIAL IV ONE (05:34)
[2023-07-21] MEDS ORDERED: NA CHLORIDE 0.9% 100 ML ONE (05:34)
[2023-07-21 15:10] VITALS: BP 119/76; TEMP 97.9; O2SAT 100
--- NOTE | 2023-07-21 23:21 | RAD REPORT ---
EXAM DESCRIPTION: US - Abdomen Exam Limited - 07/21/2023 5:21 am [employer]: US ABDOMEN LIMITED CLINICAL HISTORY: ABD PAIN. COMPARISON: None. TECHNIQUE: Ultrasound of the gallbladder with Doppler flow imaging was obtained. FINDINGS: Gallbladder: Cholelithiasis. No gallbladder wall thickening. Negative sonographic Layton's sign. Bile ducts: No dilatation of the intrahepatic bile ducts. The common bile duct measures [address] at the stacy hepatis. IMPRESSION: 1. Cholelithiasis with no gallbladder wall thickening and negative sonographic Layton sign. 2. Mildly dilated common bile duct. If there is concern for choledocholithiasis, consider MRCP. Electronically signed by: Maria G Park MD 07/21/2023 07:47 AM CDT Due to temporary technical issues with the PACS/Fluency reporting system, reports are being signed by the in house radiologists without review as a courtesy to insure prompt reporting. The interpreting radiologist is fully responsible for the content of the report.
== END 2023-07-21 08:45 | disposition short-term general hospital (02) ==
LOC: ER 04:42
DX: K80.81 Other cholelithiasis with obstruction (principal); K80.63 Calculus of gallbladder and bile duct with acute cholecystitis with obstruction; N39.0 Urinary tract infection, site not specified
CPT/HCPCS: 96365; 96361; 87088; 85025; 81001; 87086; 36415; 81025; 83690; 80053; 76705; 96375; 99285; J2543; J2405; J7030; 87077; 87186